=== PATIENT | female | born 2000 | race Caucasian/White ===

== ENCOUNTER 2023-10-19 15:25 | Emergency (ER) | payer OTHER, SELFPAY ==
[2023-10-19 15:49] VITALS: BP 126/78; PULSE 98; RESP 18; TEMP 36.4; O2SAT 98; BMI 24.7
--- NOTE | 2023-10-19 17:30 | CT_ITS ---
Patient: PERRI CRAFT Facility:?[facility] Patient ID:?[id number] Site Patient ID:?[id number]. Site :?[id number] Study:?CT-Abdomen/Pelvis W/ 66CC ISOVUE 370-10/19/2023 7:08:30 PM Ordering Physician:DERICK Final Report: INDICATION: Abdominal pain. History of Crohn`s. History of appendectomy and bowel resection. TECHNIQUE: CT of the abdomen and pelvis acquired with 66 cc Isovue 370 IV contrast. Coronal and sagittal reconstructions. COMPARISON: None. FINDINGS: Tiny low-attenuation lesion in the left hepatic lobe is too small to characterize but likely benign (series 2 image 28). Focal fatty infiltration adjacent to the falciform ligament. The gallbladder, spleen, pancreas, and adrenal glands are negative. No biliary dilation. Hepatic and portal veins are patent. Symmetric enhancement of the kidneys. Bilateral renal pelvocaliectasis without ureteral dilation or obstructing urinary calculi. No bladder wall thickening. Uterus and ovaries are unremarkable. Tampon in the vagina. A normal-appearing ileocecal valve is not identified suggesting prior ileocecectomy changes. Moderate amount of stool throughout the colon. The neoterminal ileum appears normal. No bowel wall thickening or mucosal hyperenhancement to suggest active inflammation. There is fecalized material within a few proximal small bowel loops suggesting stasis, with a possible point of narrowing in the left mid abdomen (series 4 image 43). Mildly prominent fluid-filled distal small bowel loops leading up to a point of narrowing in the right lower quadrant (series 4, image 33). These loops measure up to 2.5 cm in diameter without overt dilation. No intraperitoneal free air or fluid. No lymphadenopathy. The lung bases are clear. The bones are unremarkable. IMPRESSION: 1. Findings suggestive of prior ileocecectomy, with normal appearance of the neoterminal ileum. No findings of active bowel inflammation. 2. Fecalized material within proximal small bowel loops suggesting stasis, with a possible point of narrowing in the left mid abdomen. Additional mildly prominent fluid-filled distal small bowel loops with point of narrowing in the right lower quadrant. Findings could be due to peristalsis versus early/partial small bowel obstruction related to underlying stricture. Please note that all CT scans at this facility use dose modulation, iterative reconstruction, and/or weight-based dosing when appropriate to reduce radiation dose to as low as reasonably achievable. Dictated by Melissa Martinez MD @ 10/19/2023 7:34:00 PM Signed by:?Melissa Martinez MD @10/19/2023 7:34:00 PM (Electronic Signature)
--- NOTE | 2023-10-19 17:32 | ED_ITS ---
HPI - Abdominal Pain General Chief Complaint: Abdominal Pain Stated Complaint: Crohns, abdominal pain Time Seen by Provider: 10/19/23 17:06 History of Present Illness HPI narrative: This 23-year-old female comes in with abdominal pain that began about 3 or 4 days ago. She has a history of Crohn's disease and states that she had 3 ft of her bowel removed about 6 years ago. She has been on immune modulating medications but states that she recently discontinued 1 and is currently on b udesonide until she will start skyrizi when she returns home this week. She is visiting from [place], [place] attending a dance conference at [place]. She does not report any fever. She has not had any nausea, vomiting, diarrhea, or blood in the toilet. Related Data Home Medications Medication Instructions Recorded Confirmed Entocort EC 10/19/23 dicyclomine 10 mg capsule 10 mg PO TID 10/19/23 10/19/23 Allergies Allergy/AdvReac Type Severity Reaction Status Date / Time piperacillin [From Zosyn] Allergy Verified 10/19/23 19:09 tazobactam [From Zosyn] Allergy Verified 10/19/23 19:09 Review of Systems Status of ROS Reports: 10 or more systems reviewed and unremarkable except as noted in History and below Narrative Constitutional: No fevers, no weight gain or loss. Eyes: No discharge. No vision changes. HENT: No congestion, no sore throat, no ear pain. Cardiovascular: No chest pain, no palpitations. Respiratory: No shortness of breath, no wheezes, no cough. Gastrointestinal: No vomiting, no diarrhea. Abdominal pain as described above. Genitourinary: No dysuria, no hematuria. Musculoskeletal: Normal range of motion. Skin: No rashes, no pruritis. Neurological: No dizziness, weakness, sensory change, speech change. Endo/Heme/Allergies: No bruising or bleeding. No polydipsia. Pysch: no suicidality, no anxiety, no insomnia. All other systems reviewed and are negative. PFSH PFSH Social History Smoking Status: Never smoker Do you use any of these nicotine containing products: None Second hand tobacco smoke exposure: No How often do you have a drink containing alcohol: never AUDIT-C Alcohol total score: 0 Non-prescribed substance use: denies use service: No Exam Narrative: Exam Narrative: Constitutional: Well-developed, well-nourished, no acute distress. HEENT: Normocephalic, atraumatic. Neck: Normal range of motion. Nontender. Supple. Heart: Regular. No murmurs. Normal rate. Intact distal pulses. Lungs: Clear to auscultation. No chest discomfort. No wheezes, rhonchi, or rales. Abdomen: Normal bowel sounds. Diffuse tenderness in the mid abdomen. No rebound tenderness. Genitalia: Deferred. Back: No midline tenderness. Normal range of motion. Extremities: Normal range of motion. No injury. Skin: Intact. No rash. Warm. No erythema or pallor. Neurologic: No altered sensation. No weakness. Alert and oriented. Psychiatric: No suicidality. No anxiety or depression. No insomnia. Nursing notes and vitals signs are reviewed. Const: Vital Signs, click to edit/add: Vital Signs - 24 hr 10/19/23 15:49 Temperature 97.6 F Pulse Rate [Right Pulse Oximeter] 98 Respiratory Rate 18 Blood Pressure [Ri ght Upper Arm] 126/78 Pulse Oximetry 98 Oxygen Delivery Me thod Room Air Course Vital Signs Vital signs: Initial Vital Signs Temperature 97.6 F 10/19/23 15:49 Temperature Source Temporal Artery Scan 10/19/23 15:49 Pulse Rate 98 10/19/23 15:49 Respiratory Rate 18 10/19/23 15:49 Blood Pressure 126/78 10/19/23 15:49 Blood Pressure Mean 94 10/19/23 15:49 Blood Pressure Position Sitting 10/19/23 15:49 Pulse Oximetry 98 10/19/23 15:49 Oxygen Delivery Method Room Air 10/19/23 15:49 Vital Signs Temperature 97.6 F 10/19/23 15:49 Pulse Rate 98 10/19/23 15:49 Respiratory Rate 18 10/19/23 15:49 Blood Pressure 126/78 10/19/23 15:49 Pulse Oximetry 98 10/19/23 15:49 Oxygen Delivery Method Room Air 10/19/23 15:49 Temperature 97.6 F 10/19/23 15:49 Pulse Rate 98 10/19/23 15:49 Respiratory Rate 18 10/19/23 15:49 Blood Pressure 126/78 10/19/23 15:49 Pulse Oximetry 98 10/19/23 15:49 Oxygen Delivery Method Room Air 10/19/23 15:49 Medications Administered Medications: Discontinued Medications Generic Name Dose Route Start Last Admin Trade Name Lance PRN Reason Stop Dose Admin Ketorolac Tromethamine 15 mg 10/19/23 17:30 10/19/23 18:21 Ketorolac 30 Mg/Ml Inj IVP 10/19/23 17:31 15 mg ONCE ONE Administration Meclizine HCl 25 mg 10/19/23 17:30 10/19/23 18:05 Meclizine Hcl 25 Mg Tablet PO 10/19/23 17:31 25 mg ONCE ONE Administration Ondansetron HCl 4 mg 10/19/23 17:30 10/19/23 18:21 Ondansetron 2 Mg/Ml Inj IVP 10/19/23 17:31 4 mg ONCE ONE Administration MDM - Abdominal Pain MDM Narrative Medical decision making narrative: This patient is a 23-year-old female visiting from [place] attending a conference here. She has a history of Crohn's disease and comes in reporting some increased abdominal pain over the past 3 or 4 days. She states that she has switched out of 1 medicine and will started different medicine in a few days to manage her Crohn's symptoms. Meanwhile she is taking budesonide. She arrives here with normal vital signs in her exam is also reassuring with normal bowel sounds and no evidence of rebound tenderness. An IV was established where she did receive an IV dose of Toradol 15 mg. She also received an oral dose of meclizine as she is describing some mild vertigo symptoms. CT imaging of the abdomen and pelvis returns with no significant acute findings. The patient was concerned that she might be developing an abscess however her white count is normal and there is no such sign on CT imaging. The patient is scheduled to return home in a couple days and does have follow-up appointment in 3 days with her primary physician to review and change medications. She did receive an IV dose of methylprednisolone 125 mg. I did also prescribe some tablets of [place] for pain relief. Lab Data Labs: Lab Results 10/19/23 Range/Units 18:15 WBC 5.97 (4.50-11.00) K/uL RBC 4.79 (4.00-5.20) m/uL Hgb 13.7 (12.0-16.0) gm/dL Hct 40.1 (33.0-51.0) % MCV 84 (80-100) fL MCH 29 (26-34) pg MCHC 34 (32-36) gm/dL RDW Coeff of Kay 12.5 (11.5-15.5) % Plt Count 341 (140-440) K/uL Neut % (Auto) 56.9 (42.0-72.0) % Lymph % (Auto) 35.2 (20-44) % [place] % (Auto) 5.2 (0.0-11.0) % Eos % (Auto) 1.8 (0.0-7.0) % Baso % (Auto) 0.7 (0.0-3.0) % Neut # (Auto) 3.40 (1.7-7.0) K/uL Lymph # (Auto) 2.10 (0.90-2.90) K/uL [place] # (Auto) 0.30 (0.00-0.90) K/UL Eos # (Auto) 0.11 (0.00-0.50) K/uL Baso # (Auto) 0.04 (0.00-0.30) K/uL Abs Immat Gran (auto) 0.01 (0.00-0.30) K/uL Imm/Tot Granulo (auto) 0.2 % Sodium 137 (135-149) mmol/L Potassium 4.4 (3.6-5.1) mmol/L Chloride 106 (96-114) mmol/L Carbon Dioxide 23 (20-32) mmol/L Anion Gap 8 (7-15) mEq/L BUN 11 (5-24) mg/dL Creatinine 0.7 (0.5-1.5) mg/dL Estimated Creat Clear 100.55 Estimated GFR 126 ml/min Glucose 97 (60-115) mg/dL Calcium 9.3 (8.4-10.6) mg/dL HCG, Qual Negative (Negative) Imaging Data CT scan - abdomen: Radiologist's impression: 1. Findings suggestive of prior ileocecectomy, with normal appearance of the neoterminal ileum. No findings of active bowel inflammation. 2. Fecalized material within proximal small bowel loops suggesting stasis, with a possible point of narrowing in the left mid abdomen. Additional mildly prominent fluid-filled distal small bowel loops with point of narrowing in the right lower quadrant. Findings could be due to peristalsis versus early/partial small bowel obstruction related to underlying stricture. Discharge Plan Discharge Clinical Impression: Crohn's disease, Abdominal pain Patient Disposition: Home, Self-Care Additional Instructions: Take medication as needed and indicated. Follow up with MD as scheduled or return if worsening. Prescriptions: No Action Entocort EC dicyclomine 10 mg capsule 10 mg PO TID Follow Up/Referrals: Provider,Not a Local [Primary Care Provider] - Stand Alone Forms: EQUISO Info Instructions
[2023-10-19] MEDS: MECLIZINE HCL 25 MG TABLET PO (18:05)
[2023-10-19] MEDS: KETOROLAC 30 MG/ML inj 15 MG IVP (18:21)
[2023-10-19] MEDS: ONDANSETRON 2 MG/ML inj 4 MG IVP (18:21)
[2023-10-19 18:22] LABS: Basophils Absolute Auto 0.04 K/uL (0.00-0.30); Basophils Percent Auto 0.7 % (0.0-3.0); Eosinophils Absolute Auto 0.11 K/uL (0.00-0.50); Eosinophils Percent Auto 1.8 % (0.0-7.0); Hematocrit 40.1 % (33.0-51.0); Hemoglobin* 13.7 gm/dL (12.0-16.0); Immature Granulocytes Abs Auto 0.01 K/uL (0.00-0.30); Immature Granulocytes Pct Auto 0.2 %; Lymphocytes Percent Auto 35.2 % (20-44); Mean Corpuscular HGB Conc 34 gm/dL (32-36); Mean Corpuscular Hemoglobin 29 pg (26-34); Mean Corpuscular Volume 84 fL (80-100); Monocytes Percent Auto 5.2 % (0.0-11.0); Neutrophils Percent Auto 56.9 % (42.0-72.0); Platelet Count* 341 K/uL (140-440); RDW Coefficient of Variation % 12.5 % (11.5-15.5); Red Blood Count 4.79 m/uL (4.00-5.20); White Blood Count* 5.97 K/uL (4.50-11.00)
[2023-10-19 18:24] LABS: Slide Review Reflex No
[2023-10-19 18:40] LABS: Chloride* 106 mmol/L (96-114); Potassium* 4.4 mmol/L (3.6-5.1); Sodium* 137 mmol/L (135-149)
[2023-10-19 18:42] LABS: Creatinine* 0.7 mg/dL (0.5-1.5); Est. Creatinine Clearance* 100.55; Estimated Glomerular Filt Rate 126 ml/min
[2023-10-19 18:43] LABS: Anion Gap 8 mEq/L (7-15); Blood Urea Nitrogen* 11 mg/dL (5-24); Calcium* 9.3 mg/dL (8.4-10.6); Carbon Dioxide* 23 mmol/L (20-32); Glucose* 97 mg/dL (60-115)
[2023-10-19 18:53] LABS: HCG Qualitative Serum* Negative (Negative)
[2023-10-19] MEDS: METHYLPREDNISOLONE SOD SUCC 62.5 MG/ML (125) 125 MG IVP (20:12)
== END 2023-10-19 20:14 | disposition home or self-care (01) ==
PROVIDERS: Emergency Provider Emergency Medicine Emergency Medical Services
DX: K50.90 Crohn's disease, unspecified, without complications (principal); R10.9 Unspecified abdominal pain
CPT/HCPCS: 36415; 74177; 80048; 84703; 85025; 96374; 96375; 99284; A9270; J1885; J2405; J2930; Q9967